=== PATIENT | male | born 1975 | race Caucasian/White ===

== ENCOUNTER → 2023-11-29 11:34 | Outpatient (CLI) | payer OTHER, SELFPAY ==
--- NOTE | ~2023-11-29 | XR_ITS ---
EXAMINATION:XR cervical spine min 6V DATE: 11/29/2023 12:04 INDICATION: Neck pain TECHNIQUE: AP, lateral in neutral, flexion, extension, bilateral oblique and odontoid views of the ce rvical spine are provided. COMPARISON: None FINDINGS: There is reversal of the normal cervical lordosis. There are 2 mm of anterolisthesis of C5 on C6 and 2 mm of retrolisthesis of C6 on C7. No hypermobility is present with flexion or extension. There is moderate loss of intervertebral disc space height at C6-7. The odontoid process is intact. N o fracture is identified. The vertebral body heights are maintained. Small degenerative osteophytes p roject from the anterior endplates of multiple vertebral bodies. 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 Prevertebral soft tissues are normal. IMPRESSION: 1. Mild/moderate cervical spondylosis without acute findings. Reviewed, dictated and finalized at location [facility] [employer]
== END ==
PROVIDERS: PCP Chiropractor; Visit Provider Chiropractor
DX: M47.892 Other spondylosis, cervical region (principal)
CPT/HCPCS: 72052